=== PATIENT | female | born 1990 | race Caucasian/White ===

== ENCOUNTER 2017-12-27 22:50 | Emergency (ER) | payer SELFPAY | END 2017-12-27 23:50 | disposition home or self-care (01) | LOC: SCSER 22:50 | DX: L03.211 Cellulitis of face (principal); F32.9 Major depressive disorder, single episode, unspecified; F90.9 Attention-deficit hyperactivity disorder, unspecified type; F17.210 Nicotine dependence, cigarettes, uncomplicated | CPT/HCPCS: 99283 ==

== ENCOUNTER 2018-04-15 21:38 | Emergency (ER) | payer SELFPAY ==
[2018-04-15] MEDS ORDERED: Lidocaine 1% w/Epinephrine 1:100K 20 ML VIAL ONE (22:00)
== END 2018-04-15 22:34 | disposition home or self-care (01) ==
LOC: ERS 21:38
DX: L02.01 Cutaneous abscess of face (principal); K02.9 Dental caries, unspecified; D50.0 Iron deficiency anemia secondary to blood loss (chronic); F32.9 Major depressive disorder, single episode, unspecified; F17.210 Nicotine dependence, cigarettes, uncomplicated; F90.9 Attention-deficit hyperactivity disorder, unspecified type
CPT/HCPCS: 10060; 87070; 87077; 87186; 87205; J2001

== ENCOUNTER 2018-08-19 11:17 | Emergency (ER) | payer SELFPAY ==
[2018-08-19 12:02] LABS: #Lymphocytes 1.5 thou/uL (1.20-3.40); #Monocytes 0.6 thou/uL (0.11-0.59); #Neutrophils 3.5 thou/uL (1.40-6.50); %Basophils 0.7 % (0.0-1.0); %Eosinophils 0.8 % (0.0-10.0); %Lymphocytes 26.3 % (21.0-51.0); %Monocytes 9.9 % (0.0-10.0); %Neutrophils 62.3 % (42.0-75.0); Hemoglobin 13.7 g/dL (12.0-16.0); Mean Corpuscular HGB CONC 34.7 g/dL (32.0-36.0); Mean Corpuscular Hemoglobin 30.9 pg (27.0-31.0); Mean Platelet Volume 6.4 fL (7.4-10.4); Platelet Count 296 thou/uL (130-400); RBC Distribution Width 11.3 % (11.5-14.5); Red Blood Cell (RBC) Count 4.43 mill/uL (4.20-5.40); White Blood Cell (WBC) Count 5.7 thou/uL (4.8-10.8)
[2018-08-19 12:33] LABS: ALT (SGPT) 16 U/L (8-55); AST (SGOT) 18 U/L (5-34); Albumin 4.1 g/dL (3.5-5.0); Alkaline Phosphatase 47 U/L (40-150); Anion Gap 9 mmol/L (10-20); BUN (Urea Nitrogen) 6 mg/dL (7.0-18.7); Bilirubin, Total 0.5 mg/dL (0.2-1.2); Calc. Creatinine Clearance 0 mL/min (70-130); Calcium 9.4 mg/dL (7.8-10.44); Carbon Dioxide 28 mmol/L (22-29); Chloride 103 mmol/L (98-107); Estimated GFR-MDRD Greater than 90; Globulin 3.3 g/dL (2.4-3.5); Glucose 83 mg/dL (70-105); Potassium 3.7 mmol/L (3.5-5.1); Protein, Total 7.4 g/dL (6.0-8.3); Sodium 136 mmol/L (136-145)
[2018-08-19] MEDS ORDERED: Ondansetron ODT 4 MG TAB ONE (13:09)
[2018-08-19 13:38] LABS: Bilirubin Negative (Negative); Blood, Urine Negative (Negative); Clarity CLOUDY (Clear); Glucose, Urine (Dipstick) Negative (Negative); Leukocyte Trace (Negative); Nitrite Negative (Negative); Protein, Urine (Dipstick) Negative (Neg-Trace); Specific Gravity, Urine 1.021 (1.002-1.036)
[2018-08-19 13:39] LABS: Bacteria/HPF Rare-Few HPF (None Seen); Hyaline Casts/LPF 0-3 HYALINE CAST LPF (0-3 Hyaline); Pathc Cast-AUWi Flag 0.29 (0-2.49); WBC/HPF 0-3 HPF (0-3)
[2018-08-19 13:42] LABS: Pregnancy Test - Urine (BHCG) POSITIVE (Negative); Pregu Control Background? CLEAR/WHITE (CLR/WHITE); Pregu Control Bar Appear? YES (CONTROL BAR); Specific Gravity 1.021 (1.002-1.036)
[2018-08-19 13:55] LABS: RBC/HPF 0-3 HPF (0-3)
== END 2018-08-19 14:19 | disposition home or self-care (01) ==
LOC: ERS 11:17
DX: O21.9 Vomiting of pregnancy, unspecified (principal); O99.011 Anemia complicating pregnancy, first trimester; O99.341 Other mental disorders complicating pregnancy, first trimester; F32.9 Major depressive disorder, single episode, unspecified; O99.331 Smoking (tobacco) complicating pregnancy, first trimester; F17.210 Nicotine dependence, cigarettes, uncomplicated; Z79.899 Other long term (current) drug therapy
CPT/HCPCS: 36415; 80053; 81003; 81015; 81025; 85025; 99284; Q0162

== ENCOUNTER 2018-08-28 19:10 | Emergency (ER) | payer SELFPAY ==
[2018-08-28 19:41] LABS: Bilirubin Negative (Negative); Blood, Urine Negative (Negative); Clarity CLEAR (Clear); Glucose, Urine (Dipstick) Negative (Negative); Leukocyte Negative (Negative); Nitrite Negative (Negative); Protein, Urine (Dipstick) Negative (Neg-Trace); Specific Gravity, Urine 1.012 (1.002-1.036); pH, Urine 6.5 (5.0-9.0)
[2018-08-28 20:06] LABS: #Basophils 0.1 thou/uL (0.0-0.2); #Eosinphils 0.1 thou/uL (0.0-0.7); #Lymphocytes 2.1 thou/uL (1.20-3.40); #Monocytes 0.8 thou/uL (0.11-0.59); #Neutrophils 6.2 thou/uL (1.40-6.50); %Basophils 1.1 % (0.0-1.0); %Lymphocytes 22.6 % (21.0-51.0); %Monocytes 8.3 % (0.0-10.0); Hemoglobin 13.7 g/dL (12.0-16.0); Mean Corpuscular HGB CONC 34.7 g/dL (32.0-36.0); Mean Corpuscular Hemoglobin 30.7 pg (27.0-31.0); Mean Corpuscular Volume 88.5 fL (78.0-98.0); Mean Platelet Volume 6.9 fL (7.4-10.4); Platelet Count 254 thou/uL (130-400); RBC Distribution Width 11.5 % (11.5-14.5); Red Blood Cell (RBC) Count 4.46 mill/uL (4.20-5.40); White Blood Cell (WBC) Count 9.2 thou/uL (4.8-10.8)
[2018-08-28 20:23] LABS: ALT (SGPT) 21 U/L (8-55); AST (SGOT) 16 U/L (5-34); Albumin 4.1 g/dL (3.5-5.0); Alkaline Phosphatase 48 U/L (40-150); Anion Gap 13 mmol/L (10-20); BUN (Urea Nitrogen) 8 mg/dL (7.0-18.7); Bilirubin, Total 0.2 mg/dL (0.2-1.2); Calc. Creatinine Clearance 0 mL/min (70-130); Calcium 9.4 mg/dL (7.8-10.44); Carbon Dioxide 21 mmol/L (22-29); Chloride 101 mmol/L (98-107); Estimated GFR-MDRD Greater than 90; Globulin 3.3 g/dL (2.4-3.5); Glucose 65 mg/dL (70-105); Potassium 3.5 mmol/L (3.5-5.1); Protein, Total 7.4 g/dL (6.0-8.3); Sodium 131 mmol/L (136-145)
--- NOTE | 2018-08-28 20:37 | ULT ---
PELVIC ULTRASOUND WITH GRAYSCALE AND DOPPLER COLORFLOW IMAGING AND SPECTRAL ANALYSIS: INDICATIONS: Abdominal/pelvic pain. patient. TECHNIQUE: A transabdominal pelvic ultrasound is performed. FINDINGS: There is evidence of a gestational sac with internal pole and yolk sac. On the basis of sonogr aphic imaging, the average gestational age by ultrasound is 7 weeks 6 days. cardiac activity i s documented at 168 beats per minute. No significant abnormality of the ovaries. Doppler evaluation reveals flow to each ovary. IMPRESSION: Early live intrauterine gestation. Continued imaging followup may be obtained as clinically necessary. POS: [facility]
[2018-08-28] MEDS ORDERED: Azithromycin 250 MG TAB ONE (20:48)
[2018-08-28] MEDS ORDERED: Lidocaine 1% (PF) 30 ML VIAL ONE (20:48)
[2018-08-28] MEDS ORDERED: cefTRIAXone\\ROCEPHIN 1 GM VIAL ONE (20:48)
== END 2018-08-28 21:25 | disposition home or self-care (01) ==
LOC: ERS 19:10
DX: O99.89 Other specified diseases and conditions complicating pregnancy, childbirth and the puerperium (principal); N89.8 Other specified noninflammatory disorders of vagina; R10.30 Lower abdominal pain, unspecified; Z3A.01 Less than 8 weeks gestation of pregnancy; O99.011 Anemia complicating pregnancy, first trimester; D50.9 Iron deficiency anemia, unspecified; O99.341 Other mental disorders complicating pregnancy, first trimester; F32.9 Major depressive disorder, single episode, unspecified; F90.9 Attention-deficit hyperactivity disorder, unspecified type; O99.331 Smoking (tobacco) complicating pregnancy, first trimester; F17.210 Nicotine dependence, cigarettes, uncomplicated; Z79.899 Other long term (current) drug therapy
CPT/HCPCS: 36415; 76856; 80053; 81003; 84702; 85025; 96372; J0696; J2001

== ENCOUNTER 2018-09-10 05:15 | Emergency (ER) | payer MEDICAID ==
[2018-09-10 08:00] LABS: #Lymphocytes 0.9 thou/uL (1.20-3.40); #Monocytes 0.7 thou/uL (0.11-0.59); #Neutrophils 4.3 thou/uL (1.40-6.50); %Basophils 0.2 % (0.0-1.0); %Eosinophils 0.5 % (0.0-10.0); %Lymphocytes 14.8 % (21.0-51.0); %Monocytes 11.8 % (0.0-10.0); %Neutrophils 72.7 % (42.0-75.0); Hemoglobin 12.4 g/dL (12.0-16.0); Mean Corpuscular HGB CONC 34.3 g/dL (32.0-36.0); Mean Corpuscular Hemoglobin 30.2 pg (27.0-31.0); Mean Platelet Volume 6.9 fL (7.4-10.4); Platelet Count 234 thou/uL (130-400); RBC Distribution Width 11.5 % (11.5-14.5); Red Blood Cell (RBC) Count 4.13 mill/uL (4.20-5.40); White Blood Cell (WBC) Count 5.9 thou/uL (4.8-10.8)
[2018-09-10] MEDS ORDERED: Ondansetron PF 4 MG/2 ML Vial ONE (08:17)
[2018-09-10 08:23] LABS: ALT (SGPT) 11 U/L (8-55); AST (SGOT) 12 U/L (5-34); Albumin 3.7 g/dL (3.5-5.0); Alkaline Phosphatase 46 U/L (40-150); Anion Gap 12 mmol/L (10-20); BUN (Urea Nitrogen) 4 mg/dL (7.0-18.7); Bilirubin, Total 0.3 mg/dL (0.2-1.2); Calc. Creatinine Clearance 0 mL/min (70-130); Calcium 9.1 mg/dL (7.8-10.44); Carbon Dioxide 22 mmol/L (22-29); Chloride 104 mmol/L (98-107); Estimated GFR-MDRD Greater than 90; Globulin 2.9 g/dL (2.4-3.5); Glucose 82 mg/dL (70-105); Lipase 15 U/L (8-78); Potassium 3.6 mmol/L (3.5-5.1); Protein, Total 6.6 g/dL (6.0-8.3); Sodium 134 mmol/L (136-145)
--- NOTE | 2018-09-10 08:58 | ULT ---
PELVIC ULTRASOUND: Date: 09/10/18 PROVIDED CLINICAL HISTORY: Right lower quadrant pain. FINDINGS: Comparison made with the study dated 08/28/18. Single, live intrauterine gestation is redemonstrated, 9 weeks/4 days by crown-rump length. he art rate of 169 beats/minute documented. Uterus appears otherwise sonographically unremarkable. Right and left ovaries appear sonographically normal. There is no evidence for perigestational hemorrhage. There is no significant free pelvic fluid evident. Limited sonographic interrogation of the right lo wer quadrant demonstrates no sonographic evidence for a dilated appendix. IMPRESSION: Single, live intrauterine gestation, as described above. POS: [facility]
[2018-09-10 11:17] LABS: Bilirubin Negative (Negative); Blood, Urine Negative (Negative); Clarity CLOUDY (Clear); Glucose, Urine (Dipstick) Negative (Negative); Leukocyte Small (Negative); Nitrite Negative (Negative); Protein, Urine (Dipstick) Negative (Neg-Trace); Specific Gravity, Urine 1.015 (1.002-1.036); pH, Urine 6.5 (5.0-9.0)
[2018-09-10 11:20] LABS: Bacteria/HPF 1+ HPF (None Seen); Hyaline Casts/LPF 7-10 HYALINE CAST LPF (0-3 Hyaline); Pathc Cast-AUWi Flag 1.16 (0-2.49); RBC/HPF 0-3 HPF (0-3)
== END 2018-09-10 12:15 | disposition home or self-care (01) ==
LOC: ERS 05:15
DX: O21.9 Vomiting of pregnancy, unspecified (principal); O99.89 Other specified diseases and conditions complicating pregnancy, childbirth and the puerperium; M79.10 Myalgia, unspecified site; R10.9 Unspecified abdominal pain; O23.41 Unspecified infection of urinary tract in pregnancy, first trimester; O99.341 Other mental disorders complicating pregnancy, first trimester; F32.9 Major depressive disorder, single episode, unspecified; F90.9 Attention-deficit hyperactivity disorder, unspecified type; O99.331 Smoking (tobacco) complicating pregnancy, first trimester; F17.210 Nicotine dependence, cigarettes, uncomplicated; Z3A.12 12 weeks gestation of pregnancy
CPT/HCPCS: 36415; 76856; 80053; 81003; 81015; 83690; 84702; 85025; 87086; 87804; 93976; 96361; 96374; J2405

== ENCOUNTER 2018-11-14 21:00 | Day surgery (SDC) | payer MEDICAID, OTHER ==
[2018-11-14 21:41] VITALS: BP 99/62; TEMP 99.2; BMI 23.8
--- NOTE | 2018-11-14 21:57 | PDOC.LDHP ---
Labor and Delivery H&P Chief complaint: other (Thick discharge) HPI: Ms Lewis is a 28yo female at 19.4wks by 1T US presenting for concern of LOF yesterday at 1700. Her first was complicated by ppROM at 19 weeks resulted in at approx 38wks. Reports thick mucus discharge yesterday was similar to what she experienced with ppROM during first . Denies dysuria, new sexual partners, hx of STIs, malodorous discharge. Endorses movement. Denies contractions, vaginal bleeding. Currently smokes 6 cig/day. Denies alcohol or drug use. Reviewed records from [facility] EMR, pt was seeing Dr Tae Benoit. She was dx' ed with ppROM at 18wks, reported resealed amnion at 25.6wks with cervical length >3cm. Current gestational age (weeks): 19 (19.4) Due date: 04/06/19 Dating criteria: first trimester ultrasound Grav: 3 Para: 1 (0111) OB History Details: 1st : ppROM at 19wks, resulted in at 38wks 2nd : spontaneous , pt did not disclose details Current complications: none Abnormal US findings: No Past Medical History: Unremarkable Current medications: pre- vitamins Allergies/Adverse Reactions: Allergies Allergy/AdvReac Type Severity Reaction Status Date / Time No Known Drug Allergies Allergy Unverified 11/14/18 21:53 Social history: tobacco use (7 cig/day) - Physical Exam Vital signs reviewed and normal: yes General: NAD Heart: RRR Lungs: CTAB Abdomen: NTTP Extremeties: no edema - Plan -: Ms Lewis is a 28yo female at 19.4wks by 1T US presenting for concern of LOF yesterday at 1700. sIUP - FHTs 150 with doppler - VSS - Will obtain UA with micro and UDS as well as complete US with cervical length and CATA hx of ppROM - resulted in TAGA female by at 38wks after reportedly resealed amnion according to discharge summary.
[2018-11-14 22:32] LABS: Bilirubin Negative (Negative); Blood, Urine Negative (Negative); Clarity CLOUDY (Clear); Glucose, Urine (Dipstick) Negative (Negative); Leukocyte Negative (Negative); Nitrite Negative (Negative); Protein, Urine (Dipstick) Negative (Neg-Trace); Specific Gravity, Urine 1.025 (1.002-1.036); pH, Urine 6.5 (5.0-9.0)
[2018-11-14 22:35] LABS: Bacteria/HPF None Seen HPF (None Seen); RBC/HPF None Seen HPF (0-3); Squamous Epithelial 0-3 HPF (0-3); WBC/HPF None Seen HPF (0-3)
[2018-11-14 22:41] LABS: Amphetamine Not Detected (NotDetected); Barbiturates Screen Not Detected (NotDetected); Benzodiazepine Screen Not Detected (NotDetected); Cocaine Metabolite Screen Not Detected (NotDetected); Medtox Control Line Valid? VALID (VALID); Medtox Reader # READER 4; Methadone Not Detected (NotDetected); Methamphetamine Not Detected (NotDetected); Opiate Screen Not Detected (NotDetected); Oxycodone Screen Not Detected (NotDetected); Phencyclidine (PCP) Not Detected (NotDetected); THC/Cannabinoid Screen Not Detected (NotDetected); Tricyclic Screen Not Detected (NotDetected)
[2018-11-14 22:49] LABS: Pathc Cast-AUWi Flag 6.52 (0-2.49)
[2018-11-14 22:50] LABS: Hyaline Casts/LPF NONE SEEN LPF (0-3 Hyaline)
[2018-11-14 22:51] LABS: Urine Culture Reflex No No
--- NOTE | 2018-11-14 23:00 | ULT ---
OBSTETRIC SONOGRAM: History: 2nd trimester gestation. Possible premature rupture of membranes. FINDINGS: Multiple transabdominal sonographic views of the gravid uterus show a single intrauterine gestation i n cephalic presentation. The cervix is closed and 6.2 cm. Amniotic fluid is within normal limits. Fou r chamber heart shows motion at 149 beats/minute. Grade 0 placenta is posterior. No gross intracrania l abnormalities are apparent. spine and kidneys are intact as visualized. Three vessel cord jeremy ws a normal insertion. Measurements are as follows: BPD 19 weeks 3 days HC 19 weeks 2 days AC 20 weeks 5 days FL 19 weeks 5 days Hadlock 77 percentile. IMPRESSION: 1. Single viable intrauterine gestation with estimated gestational age based on today's sonogram of 1 9 weeks 4 days. Estimated date of delivery, 04-06-19. 2. No evidence of premature rupture of membranes. POS: [facility]
== END 2018-11-14 23:15 | disposition home or self-care (01) ==
LOC: L&D/OP 21:00
PROVIDERS: ATTEND Obstetrics & Gynecology
DX: O99.89 Other specified diseases and conditions complicating pregnancy, childbirth and the puerperium (principal); N89.8 Other specified noninflammatory disorders of vagina; O99.332 Smoking (tobacco) complicating pregnancy, second trimester; F17.210 Nicotine dependence, cigarettes, uncomplicated; Z3A.19 19 weeks gestation of pregnancy; Z87.59 Personal history of other complications of pregnancy, childbirth and the puerperium
CPT/HCPCS: 51701; 76805; 80306; 81001; 99283

== ENCOUNTER 2018-12-16 16:47 | Day surgery (SDC) | payer OTHER ==
[2018-12-16 17:27] VITALS: BMI 26.9
--- NOTE | 2018-12-16 17:52 | PDOC.LDHP ---
Labor and Delivery H&P Chief complaint: abdominal pain HPI: Patient of Dr Ruano (She saw him yesterday) Time: 1750 CC: midepigastric discomfort...but starting from her "thigh" HPI: 28 yo last 2014 here for nonspecific pain from thigh "up right side". No VB, no LOF, no fevers, good FM. No recent trauma. States started in first trimester. Saw royer yesterday, and had labs drawn...unknown results. Review of Systems: complete ROS completed and as per HPI Current gestational age (weeks): 24 (1 day) Due date: 04/06/19 Dating criteria: last menstrual period Grav: 3 Para: 1 OB History Details: SAB 1 Current complications: none Abnormal US findings: No Current medications: pre- vitamins, other (Zolofy) Previous surgical history: other (T&A) Allergies/Adverse Reactions: Allergies Allergy/AdvReac Type Severity Reaction Status Date / Time No Known Drug Allergies Allergy Verified 11/14/18 22:55 Social history: none - Physical Exam Vital signs reviewed and normal: yes (103/58 84 98.4) General: NAD Heart: RRR Lungs: CTAB Abdomen: gravid FHT: variability present (FHTS 130s, nst not done due to EGA; no CTX on toco) - Assessment 24 weeks midepigastric nonspecific discomfort. Although I do not suspect choelithiasis, I will order to R/O. - Plan Plan: observation in L&D -: I have ordered: CMP CBC RUQ sono Suspect discomforts of No evidence PTL or acute event
--- NOTE | 2018-12-16 18:10 | PDOC.EVN ---
Event Note - Event Note Event Note: Time: 804 Present during RUQ sono No GB stones, normal liver texture. Slight hydro on right (physicologic) GB may have small incidental finding of a polyp within per sono image I reviewed these findings with the patient. If labs wnl...consider outpatient care with DX of discomforts of preg
[2018-12-16 18:23] LABS: Hemoglobin 11.7 g/dL (12.0-16.0); Mean Corpuscular HGB CONC 34.3 g/dL (32.0-36.0); Mean Corpuscular Hemoglobin 31.5 pg (27.0-31.0); Mean Platelet Volume 7.2 fL (7.4-10.4); Platelet Count 256 thou/uL (130-400); RBC Distribution Width 11.7 % (11.5-14.5); Red Blood Cell (RBC) Count 3.72 mill/uL (4.20-5.40); White Blood Cell (WBC) Count 11.4 thou/uL (4.8-10.8)
[2018-12-16 19:10] LABS: ALT (SGPT) 21 U/L (8-55); AST (SGOT) 17 U/L (5-34); Albumin 3.3 g/dL (3.5-5.0); Alkaline Phosphatase 61 U/L (40-150); Anion Gap 13 mmol/L (10-20); BUN (Urea Nitrogen) 8 mg/dL (7.0-18.7); Bilirubin, Total 0.3 mg/dL (0.2-1.2); Calc. Creatinine Clearance 163 mL/min (70-130); Calcium 9.4 mg/dL (7.8-10.44); Carbon Dioxide 21 mmol/L (22-29); Chloride 105 mmol/L (98-107); Estimated GFR-MDRD Greater than 90; Globulin 3.2 g/dL (2.4-3.5); Glucose 85 mg/dL (70-105); Potassium 3.8 mmol/L (3.5-5.1); Protein, Total 6.5 g/dL (6.0-8.3); Sodium 135 mmol/L (136-145)
--- NOTE | 2018-12-16 19:19 | PDOC.EVN ---
Event Note - Event Note Event Note: Labs reviewed Ok for outpatient care
--- NOTE | 2018-12-16 19:32 | ULT ---
RIGHT UPPER QUADRANT ULTRASOUND: 12/16/18 HISTORY: Mid epigastric pain. FINDINGS: There is a nonshadowing 4 mm echogenic focus arising from the wall of the gallbladder without mobili ty consistent with polyp. No shadowing gallstones, gallbladder wall thickening, or pericholecystic fl uid is seen. The common duct measures 3 mm in diameter. There is mild hydronephrosis in the right kid kalia. The liver and visualized portions of the pancreas are unremarkable. No free fluid is seen in Mo rrison's pouch. IMPRESSION: 1. 4 mm gallbladder polyp. 2. Mi8ld hydronephrosis of the right kidney. POS: [facility]
== END 2018-12-16 19:30 | disposition home or self-care (01) ==
LOC: L&D/OP 16:47
PROVIDERS: ATTEND Obstetrics & Gynecology
DX: O99.89 Other specified diseases and conditions complicating pregnancy, childbirth and the puerperium (principal); R10.13 Epigastric pain; N13.30 Unspecified hydronephrosis; O99.612 Diseases of the digestive system complicating pregnancy, second trimester; K82.4 Cholesterolosis of gallbladder; Z3A.24 24 weeks gestation of pregnancy; Z79.899 Other long term (current) drug therapy
CPT/HCPCS: 36415; 76705; 80053; 85027; 99283

== ENCOUNTER 2018-12-19 14:32 | Emergency (ER) | payer OTHER | END 2018-12-19 14:55 | disposition home or self-care (01) | LOC: SCSER 14:32 | DX: O99.89 Other specified diseases and conditions complicating pregnancy, childbirth and the puerperium (principal); R10.9 Unspecified abdominal pain; O99.342 Other mental disorders complicating pregnancy, second trimester; F32.9 Major depressive disorder, single episode, unspecified; F90.9 Attention-deficit hyperactivity disorder, unspecified type; O99.332 Smoking (tobacco) complicating pregnancy, second trimester; F17.210 Nicotine dependence, cigarettes, uncomplicated; Z3A.24 24 weeks gestation of pregnancy ==

== ENCOUNTER 2018-12-19 15:43 | Day surgery (SDC) | payer OTHER ==
[2018-12-19 16:29] VITALS: BMI 26.9
[2018-12-19 18:15] LABS: #Basophils 0.1 thou/uL (0.0-0.2); #Eosinphils 0.1 thou/uL (0.0-0.7); #Monocytes 0.7 thou/uL (0.11-0.59); #Neutrophils 7.8 thou/uL (1.40-6.50); %Basophils 0.5 % (0.0-1.0); %Lymphocytes 18.7 % (21.0-51.0); %Monocytes 6.1 % (0.0-10.0); %Neutrophils 73.7 % (42.0-75.0); Mean Corpuscular HGB CONC 33.9 g/dL (32.0-36.0); Mean Corpuscular Hemoglobin 30.6 pg (27.0-31.0); Mean Corpuscular Volume 90.4 fL (78.0-98.0); Mean Platelet Volume 7.5 fL (7.4-10.4); Platelet Count 292 thou/uL (130-400); RBC Distribution Width 11.6 % (11.5-14.5); Red Blood Cell (RBC) Count 3.92 mill/uL (4.20-5.40); White Blood Cell (WBC) Count 10.6 thou/uL (4.8-10.8)
[2018-12-19 18:41] LABS: Amnisure Internal Control QC ACCEPTABLE (ACCEPTABLE); Amnisure Test No Membranes Rupture (No Rupture)
--- NOTE | 2018-12-19 19:43 | ULT ---
Ultrasound obstetrical complete: DATE: 12/19/2018 HISTORY: 28-year-old female with abdominal plain in the right lower quadrant. Rule out placental abruption. FINDINGS: number:Rosa lie:Breech Maternal cervix:5 cm. Closed. Placenta:Posterior. No placenta previa. No abruptio placentae. Amniotic fluid: CATA:9.5 cm. heart rate:133 bpm. The anatomy was not evaluated. biometry was not measured. IMPRESSION: 1) 2nd trimester intrauterine gestation. 2) lie:Breech 3) no placental abruption.
[2018-12-19] MEDS ORDERED: Morphine 4 MG/ML VIAL IM SCH (20:45)
--- NOTE | 2018-12-19 21:07 | PRG ---
DATE OF SERVICE: PRIMARY OB: Dr. Berry Ruano. CHIEF COMPLAINT: Abdominal pain, vaginal discharge, pelvic pressure. HISTORY OF PRESENT ILLNESS: The patient is a 28-year-old G3, P1 female with an intrauterine at 24 weeks and 4 days, who is followed by Dr. Berry Ruano, who is presenting with a 2-month history of abdominal pain, worsening pelvic pressure and increased discharge. The patient reports that this pain she has been experiencing since about 17 weeks and it is on her right side and seems to be getting worse. She reports it worse with activity and movement. She reports point tenderness on her right abdomen. She has been evaluated on two separate occasions in the last week or so with no positive findings. The patient denies fever. She denies nausea or vomiting. She denies fall. She denies headache, chest pain, shortness of breath, diarrhea, constipation, hip problems, knee problems, or muscle weakness. She does have increased vaginal discharge. Denies any urinary urgency. The patient is concerned that something may be wrong that has not been discovered yet. PAST MEDICAL HISTORY: Negative. PAST SURGICAL HISTORY: She has had her tonsils removed. SOCIAL HISTORY: Denies drug, alcohol, or tobacco use. ALLERGIES: NO KNOWN DRUG ALLERGIES. MEDICATIONS: vitamins. LABORATORY DATA: OB labs are unavailable at time of dictation. Recent labs from 12/16/2018 shows a white count of 11.4, hemoglobin 11.7, and platelets of 256, 000. Sodium of 135, creatinine of 0.55. Normal LFTs. Ultrasound with no evidence of gallstones and a posterior placenta. REVIEW OF SYSTEMS: Per HPI. PHYSICAL EXAMINATION: VITAL SIGNS: Blood pressure is 100/59, heart rate of 64, saturating 97% to 99% on room air, respiratory rate 18, and temperature 98.4. GENERAL: She appears to be in no acute distress. She is alert, oriented, cooperative, pleasant to interact with. HEAD: Normocephalic, atraumatic. LUNGS: Clear to auscultation bilaterally. HEART: Has regular rate and rhythm. ABDOMEN: Soft. She does have some point tenderness on the anterior portion of the uterus, anterior and right lateral. Also has tenderness along the right fundal region of the uterus with deviation in the lower pelvis and inguinal region. She has no upper quadrant tenderness. Left-sided palpation has some mild tenderness with minimal guarding, but no peritoneal signs. EXTREMITIES: Nontender, nonedematous. : Perineum is without masses, lesions, or erythema. She does have quite a bit of white creamy discharge at the introitus on speculum exam. This discharge continues all the way to the level of cervix. Cervix is visibly closed. AmniSure, GC, chlamydia and VPIII were all collected. On digital exam, the patient has exquisite tenderness, with her vaginal muscles on the right side are very tense on palpation as opposed to the left side which are more soft and palpable. She does have tenderness with deviation and movement of the uterus and some tenderness to deep palpation of the right and left paraovarian region, but most tender at the paravaginal muscles. LABORATORY AND DIAGNOSTIC DATA: heart tracing shows a fetus appropriate for gestational age with a baseline in the 130s with moderate long-term variability. There does appear to have an isolated deceleration that is random, but shows good tracing before and after. Tocometer does not show any regular contraction pattern. Ultrasound shows a normal CATA and no structural abnormalities in the area of the tenderness. Placenta is not located there as confirmed to be posterior. White count is 10.6, hemoglobin is 12.0, hematocrit 35.4, and platelets of 292, 000. Fibrinogen of 455. AmniSure test is negative. VPIII is negative. GC, chlamydia are pending. ASSESSMENT AND PLAN: The patient is a 28-year-old female re-presenting again with abdominal pain. The patient has an intrauterine at 24 weeks and a history of an 18-week loss due to premature rupture of membranes and subsequent nonviable delivery. The patient has no evidence of abruption, has a normal white count and no evidence of appendicitis on history or physical exam. The patient has been given reassurance, has been given Tylenol 3 #20____ taken as needed for pain and she has been encouraged to take regular Tylenol 3 times a day in place of tylenol three for the next several days to see if this will help. The patient has also been counseled to follow up with her primary OB this week. Fetus has a reassuring tracing for gestational age. Job ID: [id number] [facility]
[2018-12-22 00:35] LABS: Chlamydia by PCR Not Detected (NotDetected); GC by PCR Not Detected (NotDetected)
== END 2018-12-19 20:55 | disposition home or self-care (01) ==
LOC: L&D/OP 15:43
PROVIDERS: ATTEND Obstetrics & Gynecology
DX: O99.89 Other specified diseases and conditions complicating pregnancy, childbirth and the puerperium (principal); R10.31 Right lower quadrant pain; R10.2 Pelvic and perineal pain; N89.8 Other specified noninflammatory disorders of vagina; Z3A.24 24 weeks gestation of pregnancy; Z79.899 Other long term (current) drug therapy
CPT/HCPCS: 36415; 76815; 84112; 85025; 85384; 85460; 87480; 87491; 87510; 87591; 87660; 96372; 99283; 99285; J2270

== ENCOUNTER 2019-01-01 20:54 | Observation (INO) | payer OTHER ==
[2019-01-01 21:09] LABS: #Eosinphils 0.1 thou/uL (0.0-0.7); #Lymphocytes 1.4 thou/uL (1.20-3.40); #Monocytes 0.8 thou/uL (0.11-0.59); #Neutrophils 14.1 thou/uL (1.40-6.50); %Basophils 0.1 % (0.0-1.0); %Eosinophils 0.5 % (0.0-10.0); %Lymphocytes 8.3 % (21.0-51.0); %Monocytes 5.1 % (0.0-10.0); %Neutrophils 85.9 % (42.0-75.0); Mean Corpuscular HGB CONC 34.4 g/dL (32.0-36.0); Mean Corpuscular Hemoglobin 31.3 pg (27.0-31.0); Mean Platelet Volume 7.3 fL (7.4-10.4); Platelet Count 255 thou/uL (130-400); RBC Distribution Width 11.7 % (11.5-14.5); Red Blood Cell (RBC) Count 4.17 mill/uL (4.20-5.40); White Blood Cell (WBC) Count 16.4 thou/uL (4.8-10.8)
[2019-01-01] MEDS ORDERED: Fentanyl 100 MCG/2 ML VIAL ONE (21:21)
[2019-01-01 21:29] LABS: Bilirubin Negative (Negative); Blood, Urine Negative (Negative); Clarity CLEAR (Clear); Glucose, Urine (Dipstick) Negative (Negative); Leukocyte Negative (Negative); Nitrite Negative (Negative); Protein, Urine (Dipstick) Negative (Neg-Trace); Specific Gravity, Urine 1.023 (1.002-1.036)
[2019-01-01 21:33] LABS: ALT (SGPT) 15 U/L (8-55); AST (SGOT) 15 U/L (5-34); Albumin 3.7 g/dL (3.5-5.0); Alkaline Phosphatase 72 U/L (40-150); Anion Gap 13 mmol/L (10-20); BUN (Urea Nitrogen) 8 mg/dL (7.0-18.7); Bilirubin, Total 0.4 mg/dL (0.2-1.2); Calc. Creatinine Clearance 0 mL/min (70-130); Calcium 9.4 mg/dL (7.8-10.44); Carbon Dioxide 22 mmol/L (22-29); Chloride 103 mmol/L (98-107); Estimated GFR-MDRD Greater than 90; Globulin 3.4 g/dL (2.4-3.5); Glucose 82 mg/dL (70-105); Lipase 81 U/L (8-78); Potassium 3.3 mmol/L (3.5-5.1); Protein, Total 7.1 g/dL (6.0-8.3); Sodium 135 mmol/L (136-145)
[2019-01-01 21:38] LABS: Amphetamine Not Detected (NotDetected); Barbiturates Screen Not Detected (NotDetected); Benzodiazepine Screen Not Detected (NotDetected); Cocaine Metabolite Screen Not Detected (NotDetected); Medtox Control Line Valid? VALID (VALID); Medtox Reader # READER 4; Methadone Not Detected (NotDetected); Methamphetamine Not Detected (NotDetected); Opiate Screen Not Detected (NotDetected); Oxycodone Screen Not Detected (NotDetected); Phencyclidine (PCP) Not Detected (NotDetected); THC/Cannabinoid Screen Not Detected (NotDetected); Tricyclic Screen Not Detected (NotDetected)
[2019-01-01 21:41] LABS: Acetaminophen Less than 6.0 mcg/mL (10.0-30.0); Alcohol Less than 10 mg/dL (Less than 10); Salicylate Less than 8.0 mg/dL (15.0-30.0)
[2019-01-01] MEDS ORDERED: Ondansetron PF 4 MG/2 ML Vial IVP PRN (23:00)
[2019-01-01] MEDS ORDERED: Docusate 100 MG CAP PO PRN (23:00)
[2019-01-01] MEDS ORDERED: Promethazine HCl 25 MG/ML VIAL IM PRN (23:00)
[2019-01-01] MEDS ORDERED: Acetaminophen 500 MG TAB PO PRN (23:00)
[2019-01-01] MEDS: Lactated Ringer's 1,000 ML IV SCH (23:23)
--- NOTE | 2019-01-01 23:56 | ULT ---
EXAM: US Abdomen Limited CLINICAL HISTORY: Pelvic pain. Evaluate for appendicitis.. COMPARISON: None. FINDINGS: Limited imaging of the right lower quadrant does not demonstrate a normal caliber or inflam ed appendix. Visualized right ovary has a normal echotexture measuring 8.4 x 2.1 x 2.0 cm. No free fluid Ovarian Doppler: Vascular flow to right ovary IMPRESSION: No sonographic evidence of a normal-appearing or inflamed appendix. If there is still concern, consid er abdomen MRI.
--- NOTE | 2019-01-02 00:10 | ULT ---
Exam: Limited OB ultrasound Comparison 12/19/2018 HISTORY: Pelvic pain FINDINGS: Closed cervix, measuring 4.5 cm. Single intrauterine gestation. heart tones with a rate of 132 beats Amniotic fluid is a 16.3 cm position is vertex Posterior placenta biometry: BPD 27 weeks, 1 day Head circumference 27 weeks, 1 day Abdominal circumference 28 weeks, 0 days Femur length is 6, 0 days Average age by sonography is 27 weeks 1 day. Estimated weight is 1042 g IMPRESSION: Single intrauterine gestation with heart tones. Average age by sonography is 27 weeks 1 day. Es timated delivery date is 04/01/2019.
[2019-01-02 01:01] VITALS: BP 79/46; TEMP 98.4; BMI 26.9
[2019-01-02] MEDS: diphenhydrAMINE 50 MG/ML VIAL IVP PRN ×2 (01:21→02:30)
[2019-01-02] MEDS: Metoclopramide HCl 10 MG/2 ML VIAL IVP PRN ×4 (01:22→03:16)
--- NOTE | 2019-01-02 07:37 | MRI ---
PRELIMINARY REPORT/[facility]/EMERGENCY AFTER HOURS PROCEDURE: EXAM: MR Abdomen Without Contrast EXAM DATE/TIME: 01/01/2019 11:52 PM CLINICAL HISTORY: 28 years old, female; Acute; Patient HX: Abdominal pain, leukocytosis, , diffuse cramping of f and on x 2 months TECHNIQUE: Imaging protocol: MR of the abdomen without contrast. COMPARISON: No relevant prior studies available. FINDINGS: Liver: No mass. Gallbladder and bile ducts: Unremarkable. No stones. No ductal dilation. Pancreas: Unremarkable. No ductal dilation. Spleen: Unremarkable. No splenomegaly. Adrenals: Unremarkable. No mass. Kidneys and ureters: Mild right hydronephrosis likely related to . Stomach and bowel: Unremarkable. Intraperitoneal space: No fluid collection. Arteries: No abdominal aortic aneurysm. Reproductive: Posterior placenta. No evidence of placenta previa. Fetus in cephalic position. Soft tissues: Unremarkable. IMPRESSION: Mild right hydronephrosis likely related to . Thank you for allowing us to participate in the care of your patient. Dictated and Authenticated by: Evon Oneil MD 01/02/2019 12:56 AM Central Time ([place] & [place]) FINAL REPORT MRI ABDOMEN NONCONTRAST PERFORMED ON AN EMERGENCY BASIS: Date: 01/01/19 Time: 2359 hours HISTORY: Right flank pain. . FINDINGS: Findings agree with the preliminary report by Valeria. Single intrauterine gestation. Mild right hydrone phrosis of . No evidence of appendicitis. POS: [facility]
--- NOTE | 2019-01-02 08:11 | HP ---
CHIEF COMPLAINT: Right-sided abdominal pain and altered mental status. HISTORY OF PRESENT ILLNESS: This is a 28-year-old, G2, P0-0-1-0 at 26-3/7th weeks. She sees Dr. Ruano for her care and has a several week history of right-sided abdominal pain for which she has been worked up. She reports that it has been going on since 17 weeks so she knows "something is wrong". Her workup so far has been negative. She reportedly threw up 1 hour prior to her arrival and on her arrival, was minimally responsive, however, when she did respond, she was oriented. She denies any changes in bowel habits or urinary habits. She denies vaginal bleeding, leakage of fluid or other concerns. She is feeling movement. REVIEW OF SYSTEMS: Negative for head, eyes, ears, nose, throat, cardiovascular, respiratory, GI, , neuropsych, musculoskeletal, skin, or constitutional symptoms other than mentioned above. OBSTETRIC HISTORY: 18 weeks demise after premature rupture of membranes. PAST MEDICAL HISTORY: Negative. PAST SURGICAL HISTORY: Tonsillectomy. SOCIAL HISTORY: Denies drug, alcohol, or tobacco use. ALLERGIES: NO KNOWN DRUG ALLERGIES. MEDICATIONS: vitamins. PHYSICAL EXAMINATION: VITAL SIGNS: Blood pressure is in low 100s/60s. Vital signs otherwise unremarkable. GENERAL: Initially voluntarily unresponsive to questioning, however, after receiving pain medication, she became more cooperative and alert. ABDOMEN: Soft, tender in the right lower quadrant, gravid. Voluntary guarding. EXTREMITIES: No edema. PELVIC: Deferred at this time. LABORATORY DATA: WBC 16.4, hemoglobin 13, hematocrit 38, platelets 255,000, neutrophils 85.9%. Chemistry, potassium is 3.3 and lipase 81. Urine toxicology screen negative. ASSESSMENT/PLAN: This is a 28-year-old G2, P0-0-1-0 at 26-3/7th weeks with right lower quadrant pain. An MRI has been ordered to rule out appendicitis and an ultrasound has been ordered to evaluate the baby. She was placed on the monitor in the emergency department and initially had a couple of variable decelerations, but following the initial decelerations, the status was reassuring with normal baseline, moderate variability, and accelerations. Following her diagnostic imaging, she will be placed on observation in labor and Delivery. Dr. Ruano has been notified. Job ID: [id number] [facility]
[2019-01-02] MEDS: Lactated Ringer's 1,000 ML IV SCH (08:19)
--- NOTE | 2019-01-02 11:08 | PRG ---
DATE OF SERVICE: 01/02/2019 TIME SEEN: 1040 hours. DISCHARGE NOTE SUBJECTIVE: The patient is doing well at this time. She got up and went to the bathroom without any nausea, vomiting, or presyncopal symptoms. Blood pressure is 100/60, pulse is 85, respirations 18. She reports that she is hungry and would like to try regular diet. Admission H and P, vitals in the hospital, laboratory values, and radiologic imaging were all reviewed. It appears to me this patient has a physiologically normal hypotension of second trimester that was exacerbated by a mild gastroenteritis. This probably led to her slightly elevated white count. Further evaluation is unremarkable. The patient has persistent mild hydronephrosis of the right ureter, which is almost certainly physiologic, but in some patient, it is tolerated less well than others. PLAN: We will go ahead and discontinue continuous monitoring, advance the patient's regular diet and if she is doing well with lunch, discharge home with followup with Dr. Ruano at his office. Pt tolerated lunch well at 1200. md home Job ID: [id number] [facility]
--- NOTE | 2019-01-07 15:38 | EKG ---
Test Reason : Blood Pressure : / mmHG Vent. Rate : 077 BPM Atrial Rate : 077 BPM P-R Int : 136 ms QRS Dur : 086 ms QT Int : 394 ms P-R-T Axes : 029 055 031 degrees QTc Int : 445 ms Normal sinus rhythm Possible Left atrial enlargement Borderline ECG Confirmed by JOVON DUNAWAY M.D. ([id number]), editorial specialist JACOB HERNANDEZ ([id number]) on 01/07/2019 3:37:39 PM Referred By: Confirmed By:JOVON DUNAWAY M.D.
== END 2019-01-02 13:07 | disposition home health service (06) ==
LOC: ERS 20:54 → INTOOBSV 22:00 → OBSVTOIN 22:00 → L&D 22:00
PROVIDERS: ADMIT Obstetrics & Gynecology; ATTEND Obstetrics & Gynecology
DX: O99.612 Diseases of the digestive system complicating pregnancy, second trimester (principal); K52.9 Noninfective gastroenteritis and colitis, unspecified; O99.89 Other specified diseases and conditions complicating pregnancy, childbirth and the puerperium; N13.30 Unspecified hydronephrosis; R41.82 Altered mental status, unspecified; O99.332 Smoking (tobacco) complicating pregnancy, second trimester; F17.210 Nicotine dependence, cigarettes, uncomplicated; Z3A.26 26 weeks gestation of pregnancy
CPT/HCPCS: 36415; 51701; 72195; 74181; 76705; 76815; 80053; 80306; 80307; 81003; 83605; 83690; 85025; 86850; 86900; 86901; 93005; 96361; 96374; 96375; 96376; 99285; A4353; G0378; J1200; J2405; J2765; J3010

== ENCOUNTER 2019-02-07 22:18 | Day surgery (SDC) | payer OTHER ==
[2019-02-07 22:58] VITALS: BP 100/65; TEMP 98.5; BMI 28.7
[2019-02-08 00:12] LABS: Bilirubin Negative (Negative); Blood, Urine Negative (Negative); Clarity CLEAR (Clear); Glucose, Urine (Dipstick) Negative (Negative); Leukocyte Negative (Negative); Nitrite Negative (Negative); Protein, Urine (Dipstick) Negative (Neg-Trace); Specific Gravity, Urine 1.026 (1.002-1.036)
[2019-02-08 00:13] LABS: Bacteria/HPF None Seen HPF (None Seen); Hyaline Casts/LPF 4-6 HYALINE CAST LPF (0-3 Hyaline); Pathc Cast-AUWi Flag 1.49 (0-2.49); RBC/HPF 0-3 HPF (0-3); WBC/HPF 0-3 HPF (0-3)
[2019-02-08 00:34] LABS: FFN Internal QC Analyzer PASS (PASS); FFN Internal QC Cassette PASS (PASS); Fetal Fibronectin Negative (Negative)
--- NOTE | 2019-02-08 06:34 | ULT ---
LIMITED OB ULTRASOUND: INDICATIONS: Evaluation of cervical length. FINDINGS: Sonographic imaging, utilizing iniguez-scale and Doppler color-flow performed. The cervix is visualized with an approximated cervical length of 4.4 cm. A partially imaged intrauterine gestation is seen, with cardiac activity calculated at 143 beats per minute. The fetus is in a vertex lie, and th e imaged placenta is posterior. IMPRESSION: Cervical length approximately 4.4 cm. POS: [facility]
--- NOTE | 2019-02-08 07:59 | SS ---
DATE OF ADMISSION: 02/07/2019 DATE OF DISCHARGE: 02/08/2019 PRIMARY MEDIA BUYER: Berry Ruano MD CHIEF COMPLAINT: Abdominal pain. HISTORY OF PRESENT ILLNESS: The patient is a 28-year-old, G3, P1, female with an intrauterine at 31 weeks and 6 days, who presented to Labor and Delivery with cramping and back pain. The patient reports that this cramping and back pain has been present for several days now, but has gotten worse over the last 24 hours. She reports that she saw Dr. Ruano yesterday in the morning and had her cervix checked because of the pressure that she had been feeling and was noted to be closed, though soft. The patient denies any vaginal bleeding. She does report that she had a mucousy discharge. She denies urinary urgency. She denies a fall or abdominal trauma. She denies any recent illness, fever, headache, chest pain, shortness of breath, nausea, vomiting, diarrhea, or constipation. The patient has been having hip problems that she attributes to the , some back pain. Denies muscle weakness. PAST MEDICAL HISTORY: Negative. PAST SURGICAL HISTORY: She has had tonsillectomy. SOCIAL HISTORY: Reports tobacco use about 1 pack every 3 days. Denies drug or alcohol. ALLERGIES: NO KNOWN DRUG ALLERGIES. MEDICATIONS: 1. vitamins. 2. Iron. OB LABS: Unavailable at the time of dictation. REVIEW OF SYSTEMS: Per HPI. PHYSICAL EXAMINATION: VITAL SIGNS: Blood pressure 100/65, heart rate of 81, respiratory rate 18, saturating 97% on room air, and temperature 98.4. GENERAL: She appears to be in no acute distress. She is alert and oriented, cooperative and pleasant to interact with. HEENT: Head is normocephalic, atraumatic. LUNGS: Clear to auscultation bilaterally. HEART: Has a regular rate and rhythm. ABDOMEN: Gravid and soft. EXTREMITIES: Nontender, nonedematous. GENITALIA: Vulva without masses, lesions, or erythema. Vagina is moist with some discharge present. Cervix is difficult to visualize due to vaginal anatomy. On digital exam, cervix is closed. heart tracing shows the baseline in the 120s with moderate long-term variability, positive 15 x 15 accelerations, no decelerations. Tocometer showing some irritability, but no consistent contraction pattern. DIAGNOSTIC DATA: Urine is negative for protein, ketones, nitrites, leukocyte esterase, white blood cells, and bacteria. fibronectin is negative. Ultrasound for cervical line shows a cervical length of 4.4 cm. ASSESSMENT AND PLAN: The patient is a 28-year-old, G3, P1, female with an intrauterine at 31 weeks and 6 days, here for abdominal cramping and back pain. The patient has no evidence of infection at this time and risk for labor is extremely low with a negative fibronectin and a closed cervix. There is a VPIII pending, that will be available to later this morning. We will be following up with the patient with these results as they become available. The patient has otherwise been given reassurance and discharged home with instructions to follow up with her primary OB next Wednesday as scheduled. Job ID: [id number]
== END 2019-02-08 00:38 | disposition home or self-care (01) ==
LOC: L&D/OP 22:18
PROVIDERS: ATTEND Obstetrics & Gynecology
DX: O99.89 Other specified diseases and conditions complicating pregnancy, childbirth and the puerperium (principal); R10.9 Unspecified abdominal pain; M54.9 Dorsalgia, unspecified; O99.333 Smoking (tobacco) complicating pregnancy, third trimester; F17.210 Nicotine dependence, cigarettes, uncomplicated; Z3A.31 31 weeks gestation of pregnancy; Z79.899 Other long term (current) drug therapy
CPT/HCPCS: 76815; 81001; 82731; 87480; 87510; 87660; 99285

== ENCOUNTER 2019-02-23 10:04 | Day surgery (SDC) | payer OTHER ==
[2019-02-23 10:42] VITALS: TEMP 98; BMI 29.2
--- NOTE | 2019-02-23 11:39 | ULT ---
US OB Ltd History: 34 weeks. Bleeding. Comparison: Ultrasound 10/11/2018 Findings: Real-time grayscale, color, and spectral analysis of the pelvis performed transabdominal ap proach. Single viable intrauterine with average ultrasound age 34 week 5 day with estimated date of delivery April 01, 2019. Estimated weight is 5 lbs. 7 oz., 62nd percentile. Cervix measures 4.3 cm in length. Amniotic fluid index: 8.7 cm. heart rate documented at 128 bpm. Biometry: Biparietal diameter: 34 week 4 day, 8.59 cm Head circumference: 35 week 2 day, 31.41 cm Abdominal circumference: 34 week 5 day, 30.76 cm Femur length: 34 week 1 day, 6.63 cm The position is vertex and the placenta is posterior. Impression: 1. Closed cervix measuring 4.3 cm in length. 2. Single viable intrauterine . 3. Amniotic fluid index 8.7 cm.
[2019-02-23 12:09] LABS: Amphetamine Not Detected (NotDetected); Barbiturates Screen Not Detected (NotDetected); Benzodiazepine Screen Not Detected (NotDetected); Cocaine Metabolite Screen Not Detected (NotDetected); Medtox Control Line Valid? VALID (VALID); Medtox Reader # READER 1; Methadone Not Detected (NotDetected); Methamphetamine Not Detected (NotDetected); Opiate Screen Not Detected (NotDetected); Oxycodone Screen Not Detected (NotDetected); Phencyclidine (PCP) Not Detected (NotDetected); THC/Cannabinoid Screen Not Detected (NotDetected); Tricyclic Screen Not Detected (NotDetected)
--- NOTE | 2019-02-24 08:10 | SS ---
DATE OF ADMISSION: 02/23/2019 DATE OF DISCHARGE: 02/23/2019 REGULAR PHYSICIAN: Berry Ruano MD EVALUATING PHYSICIAN: Maurisio Estevez MD CHIEF COMPLAINT: Bleeding this morning when she woke up. HISTORY OF PRESENT ILLNESS: Ms. Lewis is a 29-year-old white G3, P1, AB1 with an estimated date of confinement of 04/06/2019, who presents complaining of bleeding when she got up this morning. She has had some irregular cramping but denies ruptured membranes or decreased movement. Her care has been with Dr. Ruano and has apparently only been complicated by round ligament pain. PAST OBSTETRICAL HISTORY: One vaginal delivery at term, as well as one miscarriage at eight weeks. She does not think she required a D and C for this. PAST MEDICAL HISTORY: None. PAST SURGICAL HISTORY: Tonsillectomy and wisdom tooth extraction. CURRENT MEDICATIONS: vitamins. ALLERGIES: NO KNOWN ALLERGIES. SOCIAL HISTORY: Denies tobacco, alcohol, or drug use. FAMILY HISTORY: Unremarkable. REVIEW OF SYSTEMS: Denies nausea, vomiting, fever, chills, ruptured membranes, or decreased movement. PHYSICAL EXAMINATION: VITAL SIGNS: In triage, vital signs are stable and she is afebrile. GENERAL: She is in no acute distress, but appears very sleepy. ABDOMEN: Soft, nontender, and gravid. heart rate tracing is stable. There are no decelerations. No significant uterine contractions were seen. Ultrasound was performed and shows a single vertex fetus with biometry consistent with dates. Her CATA is 8.7 and her cervical length is 4.3. Pelvic examination was then performed. There is no active bleeding seen. The cervix appears closed and long. ASSESSMENT: 1. Thirty-four week intrauterine . 2. No evidence of active bleeding at this time. PLAN: The patient will be dismissed to home with precautions. She was told to report back to Labor and Delivery should her symptoms recur. She has an appointment with Dr. Ruano on Wednesday. Job ID: [id number]
== END 2019-02-23 12:24 | disposition home or self-care (01) ==
LOC: L&D/OP 10:04
PROVIDERS: ATTEND Obstetrics & Gynecology
DX: O26.853 Spotting complicating pregnancy, third trimester (principal); Z3A.34 34 weeks gestation of pregnancy
CPT/HCPCS: 76815; 80306; 99283

== ENCOUNTER 2019-03-09 22:31 | Day surgery (SDC) | payer OTHER ==
[2019-03-09 23:29] VITALS: BMI 27.4
[2019-03-09 23:34] VITALS: BP 111/67; TEMP 98.3
[2019-03-09] MEDS ORDERED: hydrALAZINE 20 MG/ML VIAL SLOW IVP PRN (23:53)
[2019-03-09] MEDS ORDERED: Butorphanol Tartrate 1 MG/ML VIAL SLOW IVP PRN (23:53)
[2019-03-09] MEDS ORDERED: Promethazine HCl 25 MG/ML VIAL IM PRN (23:54)
[2019-03-10] MEDS: Lactated Ringer's 2,000 ML IV SCH ×2 (00:10→00:25)
--- NOTE | 2019-03-10 01:54 | PRG ---
DATE OF SERVICE: 03/09/2019 PRIMARY OB: Dr. Berry Ruano. CHIEF COMPLAINT: Uterine contractions. HISTORY OF PRESENT ILLNESS: The patient is a 29-year-old, G3, P1 female with an intrauterine at 36 weeks who is presenting today with abdominal pains that became more intensified earlier today. The patient reports that they are strong enough that she is feeling urges to push, they are occurring every few minutes. The patient denies leakage of fluid or vaginal bleeding. Denies intercourse in the last couple of days. Denies any recent illness, fever, fall, headache, chest pain, shortness of breath, nausea, vomiting, diarrhea, constipation, hip problems, knee problems, muscle weakness. PAST MEDICAL HISTORY: Negative. PAST SURGICAL HISTORY: Tonsillectomy. SOCIAL HISTORY: Smokes about a pack every three days. Denies drugs or alcohol use. ALLERGIES: NO KNOWN DRUG ALLERGIES. MEDICATIONS: vitamins and iron. OB LABS: Unavailable at time of dictation. REVIEW OF SYSTEMS: Per HPI. PHYSICAL EXAMINATION: VITAL SIGNS: Blood pressure 122/73, heart rate of 71, respiratory rate of 20, saturating 98% on room air, temperature 98.3. GENERAL: She appears to be in some distress. She is alert, oriented, cooperative, and pleasant to interact with. HEAD: Normocephalic, atraumatic. LUNGS: Clear to auscultation bilaterally. HEART: Has a regular rate and rhythm. ABDOMEN: Gravid and soft. EXTREMITIES: Nontender, nonedematous. CERVICAL: She is 2 cm, unchanged from several days ago at her last OB appointment performed by nursing staff. heart tracing demonstrates a fetus with a baseline in the one teens to 120s of moderate long-term variability, positive accelerations, no decelerations. Tocometer showing contractions about every 2 to 4 minutes with evidence of her pushing and grunting during the contractions. ASSESSMENT AND PLAN: The patient is a 29-year-old female, having contractions. Fetus has a category 1 tracing, reactive NST. The patient will be IV hydrated and sedated and re-evaluated in a couple of hours. Should the patient have evidence of labor, the patient will be admitted for expectant management. If not, the patient will be reassessed at that time for possible discharge home. Addendum 03/10/19 0700 ucs have spontaneously resolved with hydration and sedation. PT will be discharged home. fetus has a cat 1 tracing. Job ID: [id number] MTDD
== END 2019-03-10 07:08 | disposition home or self-care (01) ==
LOC: L&D/OP 22:31
PROVIDERS: ATTEND Obstetrics & Gynecology
DX: O47.03 False labor before 37 completed weeks of gestation, third trimester (principal); O99.333 Smoking (tobacco) complicating pregnancy, third trimester; F17.210 Nicotine dependence, cigarettes, uncomplicated; Z3A.36 36 weeks gestation of pregnancy; Z79.899 Other long term (current) drug therapy
CPT/HCPCS: 96360; 96361; 96375; 99283; J0595; J2550

== ENCOUNTER 2019-03-30 05:30 | Inpatient (IN) | payer OTHER ==
[2019-03-30] MEDS: Lactated Ringer's 1,000 ML IV SCH ×3 (07:15→12:27)
[2019-03-30 07:19] VITALS: BMI 31.4
[2019-03-30] MEDS ORDERED: Acetaminophen 500 MG TAB PO PRN (07:40)
[2019-03-30] MEDS ORDERED: hydrALAZINE 20 MG/ML VIAL SLOW IVP PRN ×2 (07:40→18:12)
[2019-03-30] MEDS ORDERED: Ibuprofen 800 MG TAB PO PRN (07:40)
[2019-03-30] MEDS ORDERED: HYDROcodone/Acetaminophen 5/325 mg Tablet PO PRN ×3 (07:40→18:12)
[2019-03-30] MEDS ORDERED: Butorphanol Tartrate 1 MG/ML VIAL SLOW IVP PRN ×2 (07:40→22:30)
[2019-03-30] MEDS ORDERED: Ondansetron PF 4 MG/2 ML Vial IVP PRN ×3 (07:40→18:12)
[2019-03-30] MEDS ORDERED: NS / Oxytocin 40 units/1000ml 1,000 ML IV PRN (07:40)
[2019-03-30] MEDS ORDERED: Diphenoxylate HCl/Atropine Tablet PO PRN ×2 (07:40)
[2019-03-30] MEDS ORDERED: Lidocaine 1% (PF) 30 ML VIAL SC PRN (07:40)
[2019-03-30] MEDS ORDERED: Misoprostol 200 MCG TAB PR PRN (07:40)
[2019-03-30] MEDS ORDERED: Methylergonovine 0.2 MG/ML VIAL IM PRN ×2 (07:40→18:12)
[2019-03-30] MEDS ORDERED: Promethazine HCl 25 MG/ML VIAL IM PRN ×3 (07:40→18:12)
[2019-03-30] MEDS ORDERED: Carboprost 250 MCG/ML AMP IM PRN (07:40)
[2019-03-30] MEDS ORDERED: NS w/ Oxytocin 10 units 500 ML IV SCH ×2 (07:45)
--- NOTE | 2019-03-30 07:45 | PDOC.LDHP ---
Labor and Delivery H&P HPI: 29 y/o at 39 and 0/7 weeks for term medical induction of labor. Current gestational age (weeks): 39 Due date: 04/08/19 Grav: 3 Para: 1 Current complications: none Abnormal US findings: No Current medications: pre-shereen vitamins Previous surgical history: other (Depression, Poor Dentition) Allergies/Adverse Reactions: Allergies Allergy/AdvReac Type Severity Reaction Status Date / Time No Known Drug Allergies Allergy Verified 03/30/19 07:16 Social history: none - Physical Exam Vital signs reviewed and normal: yes General: NAD, resting Heart: RRR Lungs: CTAB Abdomen: gravid Extremeties: no edema FHT: category 1 - Assessment L&D Assessment: elective induction at term - Plan Plan: admit to L&D, cervical ripening
[2019-03-30 08:41] LABS: Hemoglobin 10.7 g/dL (12.0-16.0); Mean Corpuscular HGB CONC 34.1 g/dL (32.0-36.0); Mean Corpuscular Hemoglobin 27.8 pg (27.0-31.0); Mean Corpuscular Volume 81.7 fL (78.0-98.0); Mean Platelet Volume 7.7 fL (7.4-10.4); Platelet Count 297 thou/uL (130-400); RBC Distribution Width 13.2 % (11.5-14.5); Red Blood Cell (RBC) Count 3.84 mill/uL (4.20-5.40); White Blood Cell (WBC) Count 9.4 thou/uL (4.8-10.8)
[2019-03-30 09:12] LABS: Syphilis Antibody Nonreactive (Nonreactive); Syphilis Antibody Index 0.04 S/CO (<1.00 Non-Reactive)
[2019-03-30 09:14] LABS: HBSAg Index 0.33 S/CO (0-0.99); Hep B Surf Ag Non-Reactive S/CO (NonReactive)
[2019-03-30] MEDS ORDERED: Fentanyl 4 mcg/Bup 0.1% Cadd 100 ML ONE (09:55)
[2019-03-30] MEDS ORDERED: Lidocaine 1.5%/Epinephrine 1:200,000 5 ML AMPUL IJ ONE (10:06)
[2019-03-30] MEDS ORDERED: Naloxone HCl 0.4 mg/ml Vial IVP PRN ×2 (10:30)
[2019-03-30] MEDS ORDERED: Acetaminophen 325 MG TAB PO PRN (10:30)
[2019-03-30] MEDS ORDERED: diphenhydrAMINE 50 MG/ML VIAL IVP PRN (10:30)
[2019-03-30] MEDS ORDERED: ePHEDrine/0.9% NaCl/PF SYRINGE 50 mg/10 ml SLOW IVP PRN (10:30)
[2019-03-30] MEDS ORDERED: Lactated Ringer's 500 ML IV PRN (10:30)
[2019-03-30] MEDS ORDERED: Fentanyl 4 mcg/Bupivacaine 0.1% Cassette 100 ML EPIDURAL SCH (10:30)
[2019-03-30] MEDS ORDERED: Communication Order-Pharmacy FS SCH (10:30)
[2019-03-30] MEDS ORDERED: Bupivacaine/Epinephrine 0.25% 30 ML VIAL ONE (18:00)
[2019-03-30] MEDS ORDERED: Milk Of Magnesia 30 ML UDCUP PO PRN (18:12)
[2019-03-30] MEDS ORDERED: Measles/Mumps/Rubella 10 MCG/0.5 ML VIAL SC ONE (18:12)
[2019-03-30] MEDS ORDERED: Lanolin Ointment 7 GM TUBE TOP PRN (18:12)
[2019-03-30] MEDS ORDERED: Zolpidem Tartrate 5 MG TAB PO PRN (18:12)
[2019-03-30] MEDS ORDERED: Adacel (T-DAP) 0.5 ML SYRINGE IM ONE (18:12)
[2019-03-30] MEDS ORDERED: Varicella virus, LIVE 0.5 ML VIAL SC ONE (18:12)
[2019-03-30] MEDS ORDERED: Preparation H Ointment 28 GM TUBE PR PRN (18:12)
[2019-03-30] MEDS ORDERED: diphenhydrAMINE 25 MG CAP PO PRN (18:12)
[2019-03-30] MEDS ORDERED: Bisacodyl 10 MG SUPP PR PRN (18:12)
[2019-03-30] MEDS ORDERED: Benzocaine-Menthol 82.5 ML CAN TOP PRN (18:12)
[2019-03-30] MEDS ORDERED: NS / Oxytocin 40 units/1000ml 1,000 ML IV SCH (18:15)
[2019-03-30] MEDS: Ibuprofen 800 MG TAB PO SCH (21:31)
[2019-03-30] MEDS: Docusate Calcium (SURFAK) 240 MG CAP PO SCH (21:31)
--- NOTE | 2019-03-31 03:35 | PDOC.PP ---
Post Progress Note Post Day #: 1 PO intake tolerated: yes Flatus: yes Ambulation: yes Vital Signs (12 hours) Temp Pulse Resp BP Pulse Ox 03/31/19 00:15 98.3 F 69 16 90/55 L 95 03/30/19 20:37 98.4 F 75 18 103/68 99 Weight Weight 172 lb - Physical Examination General: NAD Cardiovascular: no m/r/g, RRR Respiratory: clear to auscultation bilaterally, non-labored breathing Abdominal: + bowel sounds, lochia, no distention Extremities: negative homans (B) Neurological: no gross focal deficits Psychiatric: A&Ox3, normal affect Result Diagrams: 03/30/19 08:03 Additional Labs: Post Labs Blood Type A NEGATIVE 03/30/19 08:04 Hep Bs Antigen Non-Reactive S/CO (NonReactive) 03/30/19 08:03
[2019-03-31] MEDS: Ibuprofen 800 MG TAB PO SCH ×3 (05:36→21:38)
[2019-03-31 05:41] LABS: Hemoglobin 9.4 g/dL (12.0-16.0); Mean Corpuscular HGB CONC 32.7 g/dL (32.0-36.0); Mean Corpuscular Hemoglobin 27.4 pg (27.0-31.0); Mean Corpuscular Volume 83.8 fL (78.0-98.0); Mean Platelet Volume 7.2 fL (7.4-10.4); Platelet Count 243 thou/uL (130-400); RBC Distribution Width 13.1 % (11.5-14.5); Red Blood Cell (RBC) Count 3.43 mill/uL (4.20-5.40); White Blood Cell (WBC) Count 10.4 thou/uL (4.8-10.8)
[2019-03-31] MEDS: HYDROcodone/Acetaminophen 5/325 mg Tablet PO PRN ×2 (12:07→19:52)
[2019-03-31] MEDS: Docusate Calcium (SURFAK) 240 MG CAP PO SCH ×2 (12:08→21:38)
[2019-03-31] MEDS: Prenatal Vitamin 1 TAB PO SCH (12:08)
[2019-03-31] MEDS: Ferrous Sulfate 325 MG TAB PO SCH ×2 (12:09→18:40)
[2019-04-01] MEDS: Ibuprofen 800 MG TAB PO SCH (05:50)
[2019-04-01] MEDS: Ferrous Sulfate 325 MG TAB PO SCH (08:26)
[2019-04-01] MEDS: Prenatal Vitamin 1 TAB PO SCH (08:26)
[2019-04-01] MEDS: Docusate Calcium (SURFAK) 240 MG CAP PO SCH (08:27)
[2019-04-01 08:33] VITALS: BP 91/55; TEMP 98.1
--- NOTE | 2019-04-01 13:27 | PDOC.PP ---
Post Progress Note Post Day #: 2 PO intake tolerated: yes Flatus: yes Ambulation: yes Vital Signs (12 hours) Temp Pulse Resp BP Pulse Ox 04/01/19 08:31 98.1 F 70 20 91/55 L 97 04/01/19 05:51 97.7 F 65 94/51 L 96 Weight Weight 172 lb - Physical Examination General: NAD Cardiovascular: no m/r/g, RRR Respiratory: clear to auscultation bilaterally Abdominal: + bowel sounds Extremities: negative homans (B) Psychiatric: A&Ox3, normal affect Result Diagrams: 03/31/19 05:20 Additional Labs: Post Labs Blood Type A NEGATIVE 03/30/19 08:04 Hep Bs Antigen Non-Reactive S/CO (NonReactive) 03/30/19 08:03 - Assessment/Plan ppd 2 for dc doing well
== END 2019-04-01 15:00 | disposition home or self-care (01) | DRG 807 ==
LOC: L&D 06:40 → 3SE 21:10
PROVIDERS: ADMIT Obstetrics & Gynecology; ATTEND Obstetrics & Gynecology
PROC: 10E0XZZ Delivery of Products of Conception, External Approach (ICD-10-PCS; principal; 2019-03-30)
PROC: 3E033VJ Introduction of Other Hormone into Peripheral Vein, Percutaneous Approach (ICD-10-PCS; 2019-03-30)
DX: O69.1XX0 Labor and delivery complicated by cord around neck, with compression, not applicable or unspecified (principal); Z37.0 Single live birth; Z3A.39 39 weeks gestation of pregnancy
CPT/HCPCS: 36415; 51702; 85027; 86780; 86850; 86900; 86901; 87340; 90707; 90715; 90716; J2405; J2590; J3490

== ENCOUNTER 2022-10-12 22:20 | Emergency (ER) | payer SELFPAY | END 2022-10-12 23:04 | disposition left against medical advice (07) | LOC: ERS 22:20 | DX: Z53.21 Procedure and treatment not carried out due to patient leaving prior to being seen by health care provider (principal) ==

== ENCOUNTER 2023-02-08 10:27 | Emergency (ER) | payer SELFPAY ==
[2023-02-08] MEDS ORDERED: Ketorolac Tromethamine 30 MG/ML VIAL ONE (12:08)
== END 2023-02-08 12:20 | disposition home or self-care (01) ==
LOC: ERS 10:27
DX: K02.9 Dental caries, unspecified (principal); K04.7 Periapical abscess without sinus; F17.210 Nicotine dependence, cigarettes, uncomplicated
CPT/HCPCS: 96372; 99282; J1885

== ENCOUNTER 2023-04-13 08:19 | Emergency (ER) | payer SELFPAY | END 2023-04-13 09:07 | disposition home or self-care (01) | LOC: ERS 08:19 | DX: K04.7 Periapical abscess without sinus (principal); K02.9 Dental caries, unspecified; F17.210 Nicotine dependence, cigarettes, uncomplicated | CPT/HCPCS: 99282 ==

== ENCOUNTER 2025-07-06 18:56 | Emergency (ER) | payer SELFPAY | END 2025-07-06 23:35 | LOC: ERS 18:56 | DX: Z53.21 Procedure and treatment not carried out due to patient leaving prior to being seen by health care provider (principal) ==